=== PATIENT | male | born 1945 | race African-American/Black ===

== ENCOUNTER 2017-08-05 19:18 | Inpatient (IN) | payer OTHER ==
[~2017-08-05] VITALS: Ht 182.9 cm; Wt 127.0 kg
[2017-08-05] MEDS ORDERED: CENTRUM SILVER1 EAC1 (19:30)
[2017-08-05] MEDS ORDERED: ASPIR-TRIN325 MG (19:31)
[2017-08-05] MEDS ORDERED: VITAMIN D32000 UNIT (19:32)
[2017-08-05] MEDS ORDERED: CRESTOR20 MG (19:32)
[2017-08-05] MEDS ORDERED: COLCHICINE0.6 M1 (19:33)
[2017-08-05] MEDS ORDERED: DEMADEX20 MG (19:33)
[2017-08-05] MEDS ORDERED: ALDACTONE25 MG (19:34)
[2017-08-05] MEDS ORDERED: LISINOPRIL10 MG (19:34)
[2017-08-05] MEDS ORDERED: CARVEDILOL12.5 MG (19:35)
[2017-08-07] MEDS ORDERED: BRILINTA90 MG PO (10:13)
[2017-08-07] MEDS ORDERED: ASPIR 8181 MG PO (10:13)
== END 2017-08-07 12:59 | disposition home or self-care (01) | DRG 303 ==
LOC: ER 19:18 → SEC-K 08-06 09:08 → MEDI 08-06 14:04
PROC: B246ZZZ Ultrasonography of Right and Left Heart (ICD-10-PCS; principal; 2017-08-06)
PROC: C23GYZZ Positron Emission Tomographic (PET) Imaging of Myocardium using Other Radionuclide (ICD-10-PCS; 2017-08-06)
PROC: 4A12XM4 Monitoring of Cardiac Stress, External Approach (ICD-10-PCS; 2017-08-06)
PROC: 3E033HZ Introduction of Radioactive Substance into Peripheral Vein, Percutaneous Approach (ICD-10-PCS; 2017-08-06)
PROC: 4A12X4Z Monitoring of Cardiac Electrical Activity, External Approach (ICD-10-PCS; 2017-08-06)
DX: I25.110 Atherosclerotic heart disease of native coronary artery with unstable angina pectoris (principal); I50.20 Unspecified systolic (congestive) heart failure; E78.00 Pure hypercholesterolemia, unspecified; Z95.1 Presence of aortocoronary bypass graft; I11.0 Hypertensive heart disease with heart failure

== ENCOUNTER 2018-02-17 09:04 | Emergency (ER) | payer OTHER ==
[~2018-02-17] VITALS: Ht 185.4 cm; Wt 129.3 kg
[~2018-02-17 09:04] MED LIST: ALDACTONE25 MG; ASPIR 8181 MG PO; ASPIR-TRIN325 MG; BRILINTA90 MG PO; CARVEDILOL12.5 MG; CENTRUM SILVER1 EAC1; COLCHICINE0.6 M1; CRESTOR20 MG; DEMADEX20 MG; LISINOPRIL10 MG; VITAMIN D32000 UNIT
[2018-02-17] MEDS ORDERED: ZITHROMAX TRI-500 MG PO (13:49)
[2018-02-17] MEDS ORDERED: MEDROLPACK PO (13:49)
== END 2018-02-17 13:51 | disposition home or self-care (01) ==
LOC: ER 09:04
DX: B34.9 Viral infection, unspecified (principal); J11.1 Influenza due to unidentified influenza virus with other respiratory manifestations